=== PATIENT | male | born 1990 | race Two or more races ===

== ENCOUNTER 2025-04-27 20:54 | Emergency (ER) | payer SELFPAY ==
[~2025-04-27] VITALS: Ht 177.8 cm; Wt 77.1 kg
[2025-04-27] MEDS ORDERED: TDAP [DIPH/PERTUSSIS/TET] 0.5 ML VIAL IM ONE (22:34)
[2025-04-27] MEDS: TDAP [DIPH/PERTUSSIS/TET] 0.5 ML VIAL IM ONE (22:44)
[2025-04-27 23:03] VITALS: BP 120/78; TEMP 98.2; O2SAT 98
== END 2025-04-27 23:04 | disposition home or self-care (01) ==
LOC: ER 21:01
DX: S09.8XXA Other specified injuries of head, initial encounter (principal); F10.129 Alcohol abuse with intoxication, unspecified; Z79.899 Other long term (current) drug therapy; W01.0XXA Fall on same level from slipping, tripping and stumbling without subsequent striking against object, initial encounter; Y93.89 Activity, other specified; Y92.89 Other specified places as the place of occurrence of the external cause; Y99.9 Unspecified external cause status; Y90.9 Presence of alcohol in blood, level not specified
CPT/HCPCS: 82962-TC; 90715